=== PATIENT | male | born 1965 | race Two or more races ===

== ENCOUNTER → 2022-03-12 | Emergency (ER) | payer OTHER ==
[~2022-03-12] VITALS: Ht 172.7 cm; Wt 68.0 kg
== END | disposition left against medical advice (07) ==
LOC: ER 09:39
DX: K52.9 Noninfective gastroenteritis and colitis, unspecified (principal); K81.0 Acute cholecystitis; Z20.822 Contact with and (suspected) exposure to COVID-19

== ENCOUNTER 2022-10-08 09:20 | Emergency (ER) | payer OTHER ==
[~2022-10-08] VITALS: Ht 172.7 cm; Wt 68.0 kg
[~2022-10-08 09:20] MED LIST: OMEPRAZOLE40 MG PO
== END 2022-10-08 18:27 | disposition home or self-care (01) ==
LOC: ER 09:20
DX: K52.89 Other specified noninfective gastroenteritis and colitis (principal); Z87.11 Personal history of peptic ulcer disease; E86.0 Dehydration; K80.50 Calculus of bile duct without cholangitis or cholecystitis without obstruction